=== PATIENT | female | born 1935 | race Caucasian/White ===

== ENCOUNTER 2016-07-03 00:02 | Emergency (ER) | payer MEDICARE, OTHER | END 2016-07-03 03:41 | disposition home or self-care (01) | LOC: ER 00:02 | DX: J00 Acute nasopharyngitis [common cold] (principal); J01.90 Acute sinusitis, unspecified; N30.01 Acute cystitis with hematuria; I10 Essential (primary) hypertension; Z79.82 Long term (current) use of aspirin; Z86.718 Personal history of other venous thrombosis and embolism | CPT/HCPCS: 71020; 81001; 87088; 87804; 87880 ==